=== PATIENT | female | born 1990 | race Caucasian/White ===

== ENCOUNTER 2017-03-18 12:29 | Emergency (ER) | payer SELFPAY ==
[2017-03-18 13:25] LABS: Hematocrit 40 % (35-47); Mean Corpuscular HGB Conc 33 g/dl (31-36); Mean Corpuscular Hemoglobin 28 pg (27-31); Mean Corpuscular Volume 86 fL (80-97); Mean Platelet Volume 8 um3 (7.4-10.4); Red Cell Distribution Width 14 % (10.5-15); White Blood Count 6.2 10^3/ul (3.5-10.8)
[2017-03-18 13:35] LABS: Urine Bacteria Absent (Absent); Urine Bilirubin Negative (Negative); Urine Glucose Negative (Negative); Urine Nitrite Negative (Negative)
[2017-03-18 13:44] LABS: Albumin 4.3 g/dL (3.2-5.2); BUN/Creatinine Ratio 15.7 (8-20); C Reactive Protein 2.87 mg/L (< 5.00); Calcium 9.5 mg/dL (8.6-10.3); EGFR African American 128.1 (>60); EGFR Non-African American 99.6 (>60); Globulin 2.7 g/dL (2-4); Potassium 3.8 mmol/L (3.5-5.0); Total Bilirubin 0.7 mg/dL (0.2-1.0)
[2017-03-18 14:04] VITALS: BP 109/79
--- NOTE | 2017-03-18 15:12 | RAD ---
Indication: Cervical pain. Real-time sonography of the pelvis was performed utilizing endovaginal technique. Endovaginally the uterus measures 7.2 x 4.2 x 4.4 cm. Endometrial echo measures 6 mm with an IUD in place. Right ovary measures 4.2 x 1.3 x 1.9 cm. Left ovary measures 3.7 x 1.9 x 2.7 cm. Thick walled cyst is noted in the left ovary likely representing an involuting follicle measuring up to 15 mm. Doppler interrogation demonstrates flow in both ovaries. A trace amount of free fluid is noted in the cul-de-sac and surrounding both ovaries. IMPRESSION: No evidence of torsion of the ovaries is noted. Small amount of free fluid is noted in the cul-de-sac and surrounding both ovaries. IUD is in place.
--- NOTE | 2017-03-18 17:26 | ED ---
Alex Figueredo Auryana, scribed for Garth Rome MD on 03/18/17 at 1417 . Abdominal Pain/Female - HPI Summary HPI Summary: 26 year old female presents with lower abdominal pressure starting 10 days ago. The pressure started gradually on the left and it now diffuse. She also reports extreme bloating and dizziness- states she feels not clear - in the morning s/p waking up and walking, pain with intercourse-new onset with current complaint of abdominal pressure, increased frequency/urgency with urination and bowel movements. Patient also reports that her menstrual cycle is 10 days late and also has slight brownish discharge- stating that her cycle is consistently every 28 days. Negative test. She denies rhinorrhea, sore throat, CP, SOB, back pain, or any pain with urination or BM. She states that she feels the IUD is in place but feels her cervix is lower than normal. She denies any pregnancies. [facility] is from [place] - patient is visiting significant other in [place]. PMHx is PCOS (states none recently) and believes this may be a ruptured cyst. She denies tobacco and alcohol use. - History of Current Complaint Chief Complaint: EDAbdPain Stated Complaint: ABD PAIN Time Seen by Provider: 03/18/17 12:45 Hx Obtained From: Patient Hx Last Menstrual Period: 38 days ago ?: No Onset/Duration: Gradual Onset, Lasting Days - 10, Still Present Timing: Constant Severity Initially: Mild Severity Currently: Mild Pain Intensity: 3 Pain Scale Used: 0-10 Numeric Location: Other - started LLQ and now diffuse Radiates: No Aggravating Factor(s): Other: - worse during the morning Alleviating Factor(s): Nothing Associated Signs and Symptoms: Positive: Dizzy, Urinary Symptoms, Vaginal Discharge - smally brownish discharge. Negative: Chest Pain, Back Pain - Risk Factors Ectopic Risk Factor: IUD Use Allergies/Adverse Reactions: Allergies Allergy/AdvReac Type Severity Reaction Status Date / Time Avocado Allergy Abdominal Verified 03/18/17 12:34 Pain Banana Allergy GI Upset Verified 03/18/17 12:34 Coconut Oil Allergy GI Upset Verified 03/18/17 12:34 Lactose Allergy GI Upset Verified 03/18/17 12:34 Latex Allergy Anaphylatic Verified 03/18/17 12:32 Shock Methylisothiazolinone Allergy Hives/Diff. Verified 03/18/17 12:32 Breathing/I tching PMH/Surg Hx/FS Hx/Imm Hx History: Reports: Other Problems/Disorders - PCO Infectious Disease History: No Infectious Disease History: Denies: Traveled Outside the [place] in Last 30 Days - Family History Known Family History: Positive: Other - PCOS - Social History Lives: Alone - currently [place] the [place] Alcohol Use: None Hx Substance Use: No Substance Use Type: Reports: None Hx Tobacco Use: No Smoking Status (MU): Never Smoked Tobacco Review of Systems Constitutional: Negative Eyes: Negative ENT: Negative Negative: Sore Throat Cardiovascular: Negative Negative: Chest Pain Respiratory: Negative Negative: Shortness Of Breath Positive: Abdominal Pain - ABD pressure Positive: frequency, urgency, other - pain with intercourse; brownish discharge - small Skin: Negative Neurological: Negative Psychological: Normal All Other Systems Reviewed And Are Negative: Yes Physical Exam - Summary Physical Exam Summary: The patient is well-nourished in no acute distress and in no acute pain. The skin is warm and dry and skin color reflects adequate perfusion. Good skin turgor. HEENT: The head is normocephalic and atraumatic. The pupils are equal and reactive. The conjunctivae are clear and without drainage. Nares are patent and without drainage. Mouth reveals moist mucous membranes and the throat is without erythema and exudate. The external ears are intact. The ear canals are patent and without drainage. The tympanic membranes are intact. Neck is supple with full range of motion and non-tender. There are no carotid bruits. There is no neck vein distension. Respiratory: Chest is non-tender. Lungs are clear to auscultation and breath sounds are symmetrical and equal. Cardiovascular: Heart is regular rate and rhythm. There is no murmur or rub auscultated. There is no peripheral edema and pulses are symmetrical and equal. Abdomen: The abdomen is soft and [id number] reproducible pain. There are normal bowel sounds heard in all four quadrants and there is no organomegaly palpated. No tenderness over the ovaries and minimal tenderness over the uterus. Musculoskeletal: There is no back pain noted. Extremities are non-tender with full range of motion. There is good capillary refill. There is no peripheral edema or calf tenderness elicited. Neurological: Patient is alert and oriented to person, place and time. The patient has symmetrical motor strength in all four extremities. Cranial nerves are grossly intact. Deep tendon reflexes are symmetrical and equal in all four extremities. Psychiatric: The patient has an appropriate affect and does not exhibit any anxiety or depression. Triage Information Reviewed: Yes Vital Signs On Initial Exam: Initial Vitals Temp Pulse Resp BP Pulse Ox 99.2 F 67 16 126/75 98 03/18/17 12:35 03/18/17 12:35 03/18/17 12:35 03/18/17 12:35 03/18/17 12:35 Vital Signs Reviewed: Yes Diagnostics - Vital Signs Vital Signs Temp Pulse Resp BP Pulse Ox 03/18/17 12:35 99.2 F 67 16 126/75 98 - Laboratory Lab Results: Lab Results 03/18/17 03/18/17 03/18/17 Range/Units 13:15 13:15 13:15 WBC 6.2 (3.5-10.8) 10^3/ul RBC 4.60 (4.0-5.4) 10^6/ul Hgb 13.0 (12.0-16.0) g/dl Hct 40 (35-47) % MCV 86 (80-97) fL MCH 28 (27-31) pg MCHC 33 (31-36) g/dl RDW 14 (10.5-15) % Plt Count 232 (150-450) 10^3/ul MPV 8 (7.4-10.4) um3 Neut % (Auto) 64.8 (38-83) % Lymph % (Auto) 24.2 L (25-47) % Hampton % (Auto) 9.0 (1-9) % Eos % (Auto) 1.2 (0-6) % Baso % (Auto) 0.8 (0-2) % Absolute Neuts (auto) 4.0 (1.5-7.7) 10^3/ul Absolute Lymphs (auto) 1.5 (1.0-4.8) 10^3/ul Absolute Monos (auto) 0.6 (0-0.8) 10^3/ul Absolute Eos (auto) 0.1 (0-0.6) 10^3/ul Absolute Basos (auto) 0 (0-0.2) 10^3/ul Absolute Nucleated RBC 0.01 10^3/ul Nucleated RBC % 0.2 Sodium 137 (133-145) mmol/L Potassium 3.8 (3.5-5.0) mmol/L Chloride 104 (101-111) mmol/L Carbon Dioxide 26 (22-32) mmol/L Anion Gap 7 (2-11) mmol/L BUN 11 (6-24) mg/dL Creatinine 0.70 (0.51-0.95) mg/dL Est GFR ( Amer) 128.1 (>60) Est GFR (Non-Af Amer) 99.6 (>60) BUN/Creatinine Ratio 15.7 (8-20) Glucose 88 (70-100) mg/dL Lactic Acid (0.5-2.0) mmol/L Calcium 9.5 (8.6-10.3) mg/dL Total Bilirubin 0.70 (0.2-1.0) mg/dL AST 16 (13-39) U/L ALT 14 (7-52) U/L Alkaline Phosphatase 38 (34-104) U/L C-Reactive Protein 2.87 (< 5.00) mg/L Total Protein 7.0 (6.4-8.9) g/dL Albumin 4.3 (3.2-5.2) g/dL Globulin 2.7 (2-4) g/dL Albumin/Globulin Ratio 1.6 (1-3) Lipase 14 (11.0-82.0) U/L Beta HCG, Quant 0.86 mIU/mL Urine Color Colorless Urine Appearance Clear Urine pH 8.0 (5-9) Ur Specific Waterman 1.002 L (1.010-1.030) Urine Protein Negative (Negative) Urine Ketones Negative (Negative) Urine Blood Negative (Negative) Urine Nitrate Negative (Negative) Urine Bilirubin Negative (Negative) Urine Urobilinogen Negative (Negative) Ur Leukocyte Esterase Trace H (Negative) Urine WBC (Auto) Trace(0-5/hpf) (Absent) Urine RBC (Auto) Absent (Absent) Ur Squamous Epith Cells Present H (Absent) Urine Bacteria Absent (Absent) Urine Glucose Negative (Negative) 03/18/17 Range/Units 13:15 WBC (3.5-10.8) 10^3/ul RBC (4.0-5.4) 10^6/ul Hgb (12.0-16.0) g/dl Hct (35-47) % MCV (80-97) fL MCH (27-31) pg MCHC (31-36) g/dl RDW (10.5-15) % Plt Count (150-450) 10^3/ul MPV (7.4-10.4) um3 Neut % (Auto) (38-83) % Lymph % (Auto) (25-47) % Hampton % (Auto) (1-9) % Eos % (Auto) (0-6) % Baso % (Auto) (0-2) % Absolute Neuts (auto) (1.5-7.7) 10^3/ul Absolute Lymphs (auto) (1.0-4.8) 10^3/ul Absolute Monos (auto) (0-0.8) 10^3/ul Absolute Eos (auto) (0-0.6) 10^3/ul Absolute Basos (auto) (0-0.2) 10^3/ul Absolute Nucleated RBC 10^3/ul Nucleated RBC % Sodium (133-145) mmol/L Potassium (3.5-5.0) mmol/L Chloride (101-111) mmol/L Carbon Dioxide (22-32) mmol/L Anion Gap (2-11) mmol/L BUN (6-24) mg/dL Creatinine (0.51-0.95) mg/dL Est GFR ( Amer) (>60) Est GFR (Non-Af Amer) (>60) BUN/Creatinine Ratio (8-20) Glucose (70-100) mg/dL Lactic Acid 0.8 (0.5-2.0) mmol/L Calcium (8.6-10.3) mg/dL Total Bilirubin (0.2-1.0) mg/dL AST (13-39) U/L ALT (7-52) U/L Alkaline Phosphatase (34-104) U/L C-Reactive Protein (< 5.00) mg/L Total Protein (6.4-8.9) g/dL Albumin (3.2-5.2) g/dL Globulin (2-4) g/dL Albumin/Globulin Ratio (1-3) Lipase (11.0-82.0) U/L Beta HCG, Quant mIU/mL Urine Color Urine Appearance Urine pH (5-9) Ur Specific Waterman (1.010-1.030) Urine Protein (Negative) Urine Ketones (Negative) Urine Blood (Negative) Urine Nitrate (Negative) Urine Bilirubin (Negative) Urine Urobilinogen (Negative) Ur Leukocyte Esterase (Negative) Urine WBC (Auto) (Absent) Urine RBC (Auto) (Absent) Ur Squamous Epith Cells (Absent) Urine Bacteria (Absent) Urine Glucose (Negative) Result Diagrams: 03/18/17 13:15 03/18/17 13:15 Lab Statement: Any lab studies that have been ordered have been reviewed, and results considered in the medical decision making process. - Additional Comments Diagnostic Additional Comments: Patient agreed to Transvaginal US - 13:11 Transvaginal US read by radiologist - IMPRESSION: No evidence of torsion of the ovaries is noted. Small amount of free fluid is noted in the cul-de-sac and surrounding both ovaries. IUD is in place. Re-Evaluation - Re-Evaluation First Eval Re-Evaluation Time: 15:37 - reviewed labs, imaging, and plan of care to discharge with follow up Change: Unchanged Comment: patient agrees with plan Abdominal Pain Fem Course/Dx - Course Course Of Treatment: 26 y/o female presenting to the ED with left sided abdominal pressure- now diffuse- starting 10 days ago with lightheadedness, dizziness, brownish discharge, and increased urgency and frequency of urination /BM. Negative test. Urine Culture ordered-awaiting results. Transvaginal US ordered: No evidence of torsion of the ovaries is noted. Small amount of free fluid is. noted in the cul-de-sac and surrounding both ovaries. IUD is in place. Will discharge home with [facility] follow up. - Diagnoses Differential Diagnosis: Positive: Ectopic , Ovarian Cyst, Urinary Tract Infection, Other - Provider Diagnoses: Amenorrhea, Ovarian cyst Is Visit Related: No Discharge - Discharge Plan Condition: Stable Disposition: HOME Patient Education Materials: Ovarian Cyst (ED), Polycystic Ovarian Syndrome (ED ) Referrals: Amy Gupta PA [Primary Care Provider] - Elke uFnk MD [Medical Doctor] - 3 Days The documentation as recorded by the Alex nolen Auryana accurately reflects the service I personally performed and the decisions made by me, Garth Rome MD.
== END 2017-03-18 15:54 | disposition home or self-care (01) ==
LOC: ED 12:29
DX: N83.209 Unspecified ovarian cyst, unspecified side (principal); R10.30 Lower abdominal pain, unspecified; R42 Dizziness and giddiness; N91.2 Amenorrhea, unspecified
CPT/HCPCS: 36415; 76830; 80053; 81003; 81015; 83605; 83690; 84702; 85025; 86140; 87086; 99283